=== PATIENT | male | born 1945 | race Caucasian/White ===

== ENCOUNTER → 2016-07-07 | Outpatient (CLI) | payer BC ==
[~2016-07-07] MED LIST: ACET-1256 PO; ASPI325T45 PO; LISI1TAB3 PO; SIMV10TA2 PO
== END | disposition home or self-care (01) ==
LOC: C.CPL 15:57
DX: M75.121 Complete rotator cuff tear or rupture of right shoulder, not specified as traumatic (principal)

== ENCOUNTER → 2016-12-16 | Outpatient (CLI) | payer BC ==
[2016-12-16 10:37] LABS: CALCIUM 8.8 mg/dl (8.5-10.1)
[2016-12-16 10:40] LABS: ALT/SGPT 43 U/L (12-78); BLOOD UREA NITROGEN 17 mg/dl (7-18); BUN/CREATININE RATIO 13.8 (10-20); CARBON DIOXIDE 25 mmol/L (21-32); CHLORIDE 107 mmol/L (98-107); CHOLESTEROL 158 mg/dl (0-200); GLUCOSE 113 mg/dl (70-99); POTASSIUM 4.2 mmol/L (3.5-5.1); SODIUM 140 mmol/L (136-145); TRIGLYCERIDES 162 mg/dl (0-150); VERY LOW DENSITY LIPOPROT CALC 32 mg/dl
[2016-12-16 10:44] LABS: ALB/GLOB RATIO 1.2 (0.9-2); ALKALINE PHOSPHATASE 80 U/L (45-117); AST/SGOT 32 U/L (15-37); CHOLESTEROL/HDL RATIO 4.5; HDL CHOLESTEROL 35 mg/dl; LDL CHOLESTEROL CALCULATED 91 mg/dl; PROSTATE SPECIFIC ANTIGEN 0.953 ng/ml (0.000-4.000)
[2016-12-16 10:46] LABS: ESTIMATED AVERAGE GLUCOSE 123 mg/dl; HA1C FLAG Normal (Normal)
--- NOTE | 2016-12-22 07:25 | CODING QUERY MEDICAL NECESSITY ---
SUPPORTING DIAGNOSIS NEEDED Dr. Villalobos, A supporting diagnosis is required for the test/procedure performed on this patient in order for us to be reimbursed by the patient's insurance. Please provide a supporting diagnosis for the following test/procedure listed below next to the test name along with your signature. *If there is no additional diagnosis for this patient that would support the following test/procedure please document that below next to the test/procedure. Test(s)/Procedure(s) that require a supporting diagnosis: * 52676 PSA DIAGNOSIS: * [id number] GLYCATED HEMOGLOBIN DIAGNOSIS: DATE OF SERVICE: 12/16/16 Provider Signature: Date: Thank you Scout Rivera Health Information Management Once completed, please kindly fax back to [phone] For questions please call [phone]
== END | disposition home or self-care (01) ==
LOC: C.LABBC 07:16
PROVIDERS: ATTEND Internal Medicine
DX: G47.33 Obstructive sleep apnea (adult) (pediatric) (principal); R73.01 Impaired fasting glucose; Z12.5 Encounter for screening for malignant neoplasm of prostate

== ENCOUNTER 2022-07-19 09:57 | Observation (INO) ==
--- NOTE | 2022-07-07 16:14 | PAT Medication Instructions ---
Medication Instructions Date of Service July 07, 2022 Home Medications Medication Instructions Recorded Auto Titrating CPAP #1 ea 02/26/21 lisinopril 30 mg tablet 30 mg PO QAM #90 tabs 06/14/22 diphenhydramine HCl 25 mg capsule (Benadryl) 25 mg PO HS PRN Insomnia acetaminophen 500 mg tablet (Acetaminophen Extra Strength) 1,000 mg PO Q8H PRN Pain aspirin 325 mg tablet 325 mg PO TID lactobacillus combination no.8 3 billion cell capsule (Adult Probiotic) 3,000 mmu cells PO QAM loratadine 10 mg tablet 10 mg PO DAILY PRN Allergy Symptoms turmeric 400 mg capsule 750 mg PO BID calcium carbonate 200 mg calcium (500 mg) chewable tablet (Antacid (calcium carbonate)) 200 mg PO HS PRN Acid Reflux amoxicillin 500 mg capsule 2,000 mg PO UD PRN prior to dental procedures doxycycline hyclate 100 mg capsule 200 mg PO UD PRN tick bites lisinopril 30 mg tablet 30 mg PO QAM simvastatin 10 mg tablet 10 mg PO HS Continue as directed amoxicillin 500 mg capsule 2,000 mg PO UD PRN prior to dental procedures (if needed) doxycycline hyclate 100 mg capsule 200 mg PO UD PRN tick bites (if needed) ASK your prescriber and surgeon aspirin 325 mg tablet 325 mg PO TID STOP taking 2 weeks before surgery turmeric 400 mg capsule 750 mg PO BID DO NOT take the morning of surgery lactobacillus combination no.8 3 billion cell capsule (Adult Probiotic) 3,000 mmu cells PO QAM loratadine 10 mg tablet 10 mg PO DAILY PRN Allergy Symptoms lisinopril 30 mg tablet 30 mg PO QAM Take morning of surgery With a small sip of water, OTHERWISE NOTHING TO EAT OR DRINK AFTER MIDNIGHT: acetaminophen 500 mg tablet (Acetaminophen Extra Strength) 1,000 mg PO Q8H PRN Pain (if needed) Take evening before surgery diphenhydramine HCl 25 mg capsule (Benadryl) 25 mg PO HS PRN Insomnia (if needed) acetaminophen 500 mg tablet (Acetaminophen Extra Strength) 1,000 mg PO Q8H PRN Pain (if needed) loratadine 10 mg tablet 10 mg PO DAILY PRN Allergy Symptoms (if needed) calcium carbonate 200 mg calcium (500 mg) chewable tablet (Antacid (calcium carbonate)) 200 mg PO HS PRN Acid Reflux (if needed) simvastatin 10 mg tablet 10 mg PO HS Other Notes If you have any questions please call us at [phone] or [phone] or [phone] or [phone]
--- NOTE | 2022-07-09 08:20 | Anesthesiology Consultation ---
Date of Service July 09, 2022 Assessment & Plan (1) Encounter for pre-operative examination: - COVID screening: Per assessment on 07/09: No known COVID-19 positive contacts or current COVID-19 related symptoms. Travel screen negative. Patient vaccinated. At surgeon discretion if preop Covid testing being done. - Check BSG AM DOS - Right TKA (04/20/18): SAB at L4-5 (x1 attempt) + PNB at [facility]. No issues noted per post-op anesthesia progress note. - Outpatient joint assessment: Pt currently scheduled for inpatient pathway. If surgeon requests review for outpatient joint pathway, patient is not recommended candidate for outpatient joint program from anesthesia standpoint. - Preop CXR: Per preop CXR, "Possible 12 mm nodule within the right midlung zone. Follow-up noncontrast chest CT recommended for further evaluation." At PCP discretion if CT needs to be done prior to surgery or not. Pt will be seeing [facility] for preop evaluation 07/13. Workload message sent to PCP regarding CXR findings. Awaiting PCP CXR response and preop evaluation (RITA, appt 07/13). Chart Review Chart Review: Patient seen in Pre Admission Testing History Surgery Operation Date: 07/19/22 09:55 Proposed Procedures p Left Total Knee Arthroplasty - Babak Ma MD Height/Weight Height: 5 ft 7 in Weight: 104.9 kg Allergies Allergy/AdvReac Type Severity Reaction Status Date / Time celecoxib Allergy Severe RED FACE, Verified 07/09/22 08:18 TONGUE SWELLING betamethasone Allergy Mild RASH Verified 07/07/22 10:29 clotrimazole Allergy Mild RASH Verified 07/07/22 10:29 corn AdvReac Intermediate STOMACH Verified 07/07/22 10:29 CRAMPING Medications Home Medications Medication Instructions Recorded Confirmed Last Taken diphenhydramine HCl 25 mg capsule 25 mg PO HS PRN Insomnia 04/05/18 07/07/22 04/18/18 22:00 (Benadryl) acetaminophen 500 mg tablet 1,000 mg PO Q8H PRN Pain 02/19/19 07/07/22 11/19/21 (Acetaminophen Extra Strength) aspirin 325 mg tablet 325 mg PO TID 02/27/19 07/07/22 11/19/21 lactobacillus combination no.8 3 3,000 mmu cells PO QAM 02/19/20 07/07/22 11/19/21 billion cell capsule (Adult Probiotic) loratadine 10 mg tablet 10 mg PO DAILY PRN Allergy Symptoms 02/19/20 07/07/22 11/19/21 turmeric 400 mg capsule 750 mg PO BID 02/19/20 07/07/22 11/19/21 calcium carbonate 200 mg calcium 200 mg PO HS PRN Acid Reflux 08/27/20 07/07/22 11/24/21 (500 mg) chewable tablet (Antacid (calcium carbonate)) Auto Titrating CPAP #1 ea 02/26/21 03/01/22 Unknown amoxicillin 500 mg capsule 2,000 mg PO UD PRN prior to dental 11/23/21 07/07/22 Unknown procedures doxycycline hyclate 100 mg capsule 200 mg PO UD PRN tick bites 11/23/21 07/07/22 Unknown lisinopril 30 mg tablet 30 mg PO QAM #90 tabs 06/14/22 07/07/22 Unknown simvastatin 10 mg tablet 10 mg PO HS 07/07/22 07/07/22 Unknown Past Medical History Medical History (Updated 07/09/22 @ 08:39 by Ann Marie Mederos) Diverticulitis hx (most recent flare 05/2022) Diverticulosis Dyslipidemia GERD (gastroesophageal reflux disease) Controlled Hypertension Internal hemorrhoids Low HDL (under 40) Obesity Obstructive sleep apnea CPAP (generally compliant but recently not using as he needs to clean device- states he will clean and restart NICHOLAS) Osteoarthritis of knee Prediabetes no meds Sensorineural hearing loss of both ears B/L hearing aids Exercise / Class Metabolic Activity II 4-5 Yardwork/Stairs/Walk up hill Past Family History Family History Brother Esophageal cancer Father Colorectal cancer Other Hypertension No family history of adverse response to anesthesia Denies family history of Ovarian cancer Prostate cancer Diabetes Myocardial infarction Breast cancer Lung cancer Stroke Past Surgical History Surgical History (Updated 07/08/22 @ 15:05 by Ann Marie Mederos) History of colonoscopy History of esophagogastroduodenoscopy (EGD) History of total hip arthroplasty Right CALEB (07/11/14): SAB at [facility] History of total shoulder replacement Right Hx of vasectomy Status post right knee replacement Right TKA (04/20/18): SAB at L4-5 (x1 attempt) + PNB at [facility]. No issues noted per post-op anesthesia progress note. Past Anesthesia History No Hx of Anesthesia Complications and No Family Hx of Anesthesia Complications History of PONV No Hx of PONV and No Hx of Motion Sickness Social History Smoking Status: Former smoker Do You Dip or Chew Tobacco: No Smoking End Date: Quit 35+ years ago Hx Alcohol Use: No (No ETOH x years) Hx Substance Use: No substance use type: does not use Review of Systems Patient denies chest pain, shortness of breath, dyspnea on exertion, fever, chills, cough, wheezing, palpitations. Physical Exam Vital Signs VITALS BP 154/93 P 69 TEMP 98.3 SP02 96%RA RESP 18 PHYSICAL Full cervical extension range of motion. Full TMJ range of motion. TMD 4 finger breaths Mallampati Score 2 Dentition: intact, + implants/crowns Lungs: clear throughout to auscultation Cardiac: regular rate and rhythm, no murmurs noted Spine: normal Carotid arteries: negative bruit Extremities: no edema Lab Results Anesthesia Preop Results Results Anesthesia Widget: WBC 7.86 K/ul (4.8-10.8) 07/09/22 Hgb 15.8 g/dl (14.0-18.0) 07/09/22 Hct 45.3 % (40.1-51.0) 07/09/22 Plt 268 K/uL (130-400) 07/09/22 Na 137 mmol/L (136-145) 07/09/22 K 4.4 mmol/L (3.5-5.1) 07/09/22 Cl 105 mmol/L (98-107) 07/09/22 CO2 26 mmol/L (21-32) 07/09/22 BUN 20 mg/dl (6-23) 07/09/22 Creat 1.09 mg/dl (0.6-1.4) 07/09/22 Glucose Level 106 mg/dl (70-99(Fasting)) H 07/09/22 PT 11.1 Seconds (9.0-12.0) 07/09/22 PTT 28.2 Seconds (21.0-31.0) 07/09/22 INR 1.0 (0.9-1.1) 07/09/22 HA1c 6.1 % (4.5-5.6) H 07/09/22 Urine Color Yellow 07/09/22 Urine Appearance Clear (Clear) 07/09/22 Urine pH 5.5 (4.5-7.5) 07/09/22 Urine Specific [place] 1.007 (1.000-1.030) 07/09/22 Urine Protein Negative (Negative) 07/09/22 Urine Glucose (UA) Negative (Negative) 07/09/22 Urine Ketones Negative (Negative) 07/09/22 Urine Blood Negative (Negative) 07/09/22 Urine Nitrite Negative (Negative) 07/09/22 Urine Bilirubin Negative (Negative) 07/09/22 Urine Urobilinogen Negative (Negative) 07/09/22 Urine Leukocyte Esterase Negative (Negative) 07/09/22 Blood Type AB Positive 07/09/22 Antibody Screen NEGATIVE 07/09/22 Testing Electrocardiogram Date: 07/09/22 Normal sinus rhythm at 66 bpm. Chest X-Ray Date: 07/09/22 FINDINGS: Possible 12 mm nodule within the right midlung zone. Otherwise, lungs are clear. No pleural fusions. No pneumothorax. Tortuous thoracic aorta. The heart is normal in size. Slight elevation of the right hemidiaphragm, unchanged. IMPRESSION: Possible 12 mm nodule within the right midlung zone. Follow-up noncontrast chest CT recommended for further evaluation. This report was called/faxed to the referring physician following dictation. COVID-19 Risk Screen Screening Information COVID-19 Screen Date: 07/09/22 Exposure 21 Days Family/Household +COVID Last 21 Days: No Exposure 10 Days Any COVID Exposure Last 10 Days: No Symptoms Last 10 Days Experienced COVID Sx Last 10 Days: No + COVID 0-90 Days COVID + in Last 0-90 Days: No
--- NOTE | 2022-07-18 10:38 | History & Physical Report ---
Date of Service July 18, 2022 Assessment & Plan (1) Primary osteoarthritis of left knee: Plan: Treatment options discussed with the patient. He has failed conservative measures and would like to proceed with surgical invention. Risks, benefits and alternatives to surgery including but not limited to infection, DVT, pain, stiffness, need for revision surgery, damage to blood vessels, damage to nerves, PE, , were discussed with the patient and they wish to proceed. Plan left total knee arthroplasty at [facility] on July [address] Ma. We will plan on outpatient physical therapy versus home health PT postop. We will plan on aspirin 81 mg twice daily for 1 month postop. All questions answered. Patient will follow up postop. History of Present Illness Chief Complaint: Left knee pain Primary Care Provider: Lake Villalobos MD 76-year-old male with past medical history significant for hypertension, sleep apnea, diverticulitis who presents with ongoing left knee pain. Patient has failed conservative measures. Pain is interfering with his daily activities. He would like to proceed with surgical invention. Patient denies headaches, sweats, fevers, chills, double vision, blurred vision, cough, sore throat, dysphagia, chest pain, sob, wheezing, n/v/d/c, numbness, tingling, fatigue, urinary symptoms, mood disorders. ROS positive for left knee pain and stiffness. Allergies Allergy/AdvReac Type Severity Reaction Status Date / Time celecoxib Allergy Severe RED FACE, Verified 07/13/22 09:56 TONGUE SWELLING betamethasone Allergy Mild RASH Verified 07/13/22 09:56 clotrimazole Allergy Mild RASH Verified 07/13/22 09:56 corn AdvReac Intermediate STOMACH Verified 07/13/22 09:56 CRAMPING Home Medications Medication Instructions Recorded Confirmed Type diphenhydramine HCl 25 mg capsule 25 mg PO HS PRN Insomnia 04/05/18 07/13/22 History (Benadryl) acetaminophen 500 mg tablet 1,000 mg PO Q8H PRN Pain 02/19/19 07/13/22 History (Acetaminophen Extra Strength) aspirin 325 mg tablet 325 mg PO TID 02/27/19 07/13/22 History lactobacillus combination no.8 3 3,000 mmu cells PO QAM 02/19/20 07/13/22 H istory billion cell capsule (Adult Probiotic) loratadine 10 mg tablet 10 mg PO DAILY PRN Allergy Symptoms 02/19/20 07/13/22 History turmeric 400 mg capsule 750 mg PO BID 02/19/20 07/13/22 History calcium carbonate 200 mg calcium 200 mg PO HS PRN Acid Reflux 08/27/20 07/13/22 History (500 mg) chewable tablet (Antacid (calcium carbonate)) Auto Titrating CPAP #1 ea 02/26/21 07/13/22 Rx amoxicillin 500 mg capsule 2,000 mg PO UD PRN prior to dental 11/23/21 07/13/22 History procedures lisinopril 30 mg tablet 30 mg PO QAM #90 tabs 06/14/22 07/13/22 Rx simvastatin 20 mg tablet 20 mg PO HS #90 tabs 07/13/22 07/13/22 Rx Past Med/Surg History Medical History Diverticulitis Diverticulosis Dyslipidemia GERD (gastroesophageal reflux disease) Hypertension Internal hemorrhoids Low HDL (under 40) Obesity Obstructive sleep apnea Osteoarthritis of knee Prediabetes Sensorineural hearing loss of both ears Surgical History History of colonoscopy History of esophagogastroduodenoscopy (EGD) History of total hip arthroplasty History of total shoulder replacement Hx of vasectomy Status post right knee replacement Family History Brother Esophageal cancer Father Colorectal cancer Other Hypertension No family history of adverse response to anesthesia Denies family history of Ovarian cancer Prostate cancer Diabetes Myocardial infarction Breast cancer Lung cancer Stroke Social History Smoking Status: Former smoker Second Hand Exposure: Yes (35 years ago); Hx Alcohol Use: No (No ETOH x years) Hx Substance Use: No Preferred Language: Tamazight Communication Ability: Effective Visual Impairment: Limited Hearing Ability: Use of Hearing Aid Pedigree Tracer Required: No Beliefs That Will Affect Care: None marital status: Current Living Situation: Spouse current occupational status: retired How many Children do You have: 1 Feels Safe at Home: Yes Childhood Exposure to Second-Hand Smoke: No caffeine: Yes Dental Care, Regularly: Yes Physical Activity Frequency: Daily Seatbelt Use: always Sunscreen Use: Yes Assistive Devices: CPAP and Hearing Aid - Bilateral Review of Systems All systems reviewed & are unremarkable except as noted in HPI & below Physical Exam Constitutional: well developed and well nourished; no acute distress Eyes: PERRL, conjunctivae normal, anicteric sclerae ENMT: external ear and nose normal, oropharynx normal Neck: trachea midline, no thyromegaly Respiratory: normal respiratory effort, lungs clear to auscultation Cardiovascular: RRR, no murmur, no edema Musculoskeletal: Left knee: Mild effusion. Tenderness medial joint line painful range of motion. Range of motion 0 to 135 degrees. Stable to valgus and varus stress test. Skin: no rashes, warm and dry Neurologic: patellar DTR's 2+ bilat, sensation intact Psychiatric: A+Ox3, euthymic affect Results & Data ([facility]) Diagnostic Findings Demonstrate significant joint space narrowing medial compartment, [id number]. There is subluxation of the femur on tibia. There is tricompartment degenerative changes.
[~2022-07-19 09:57] MED LIST changes: -ACET-1256 PO; +ACETAMINOPHEN 500 MG TAB PO SCH; -ASPI325T45 PO; +BUPIVACAINE 0.5 % 5 MG/1 ML PF 10ML VIAL ONE; +EPINEPHrine INJ 1 MG/ML AMP ONE; +FAMOTIDINE 20 MG TAB PO SCH; +GABAPENTIN 300 MG CAP PO SCH; -LISI1TAB3 PO; +LR 500ML BOLUS, THEN 15ML/HR IV SCH; +METOCLOPRAMIDE HCL 10 MG TABLET PO SCH; +ROPIVACAINE 0.5% 5 MG/ML 30 ML VIAL ONE; +ROPIVACAINE 0.5% HCL/PF 150 MG, BUPIVACAINE 0.75% MPF 20 ML, EPINEPHrine 30MG/30ML (OR ... INSTIL SCH; -SIMV10TA2 PO; +TRANEXAMIC ACID 1,000 MG **IV Intra-op IV SCH; +TRANEXAMIC ACID 1,000 MG **IV Pre-op IV SCH; +ceFAZolin 2000MG 2,000 MG/15 ML SYR IV SCH; +dexAMETHasone 4 MG TAB PO SCH
--- NOTE | 2022-07-19 10:12 | History & Physical Bridge Note ---
Date of Service July 19, 2022 History & Physical Bridge Note I have examined the patient, reviewed the History & Physical and in the interval since the performance of the History & Physical I have noted the following changes of clinical significance: no changes noted
[2022-07-19] MEDS ORDERED: ORTHO JOINT ANESTHETIC ONE (10:13)
[2022-07-19] MEDS ORDERED: ONDANSETRON INJ 2 MG/ML 2 ML VIAL IV PRN ×2 (10:18→16:33)
[2022-07-19] MEDS ORDERED: PHENYLEPHRINE 100MCG/ML 5ML SYR IV PRN (10:18)
[2022-07-19] MEDS ORDERED: ATROPINE SULFATE 0.1 MG/ML 10ML SYR IV PRN (10:18)
[2022-07-19] MEDS ORDERED: HYDROmorphone INJ 1 MG/ML SYRINGE IV PRN (10:18)
[2022-07-19] MEDS ORDERED: ePHEDrine sulfate 50 MG/ML AMP IV PRN (10:18)
[2022-07-19] MEDS ORDERED: fentaNYL citrate 100 MCG/2 ML VIAL IV PRN (10:18)
[2022-07-19] MEDS ORDERED: LABETALOL HCL IV 5 MG/ML 20ML IV PRN (10:18)
[2022-07-19] MEDS ORDERED: MEPERIDINE HCL 25 MG/ML CARP/VIAL IV PRN (10:18)
[2022-07-19] MEDS ORDERED: MIDAZOLAM HCL 1 MG/ML 2ML VIAL ONE ×2 (11:40→14:14)
[2022-07-19] MEDS ORDERED: PROPOFOL IV EMULSION 10 MG/ML 20 ML VIAL IV ONE ×3 (11:43→14:51)
[2022-07-19] MEDS ORDERED: PHENYLEPHRINE 100MCG/ML 5ML SYR ONE (12:51)
[2022-07-19] MEDS ORDERED: fentaNYL citrate 100 MCG/2 ML VIAL ONE (14:13)
--- NOTE | 2022-07-19 14:51 | Operative Report ---
Post Operative Report Pre & Post Diagnosis Operation Date: 07/19/22 11:55 Pre-Op Diagnosis: Degenerative Joint Disease, Left Knee. Post-Op Diagnosis: Degenerative Joint Disease, Left Knee. I identified the patient and participated in the time-out.: Yes Procedure Operation Date: 07/19/22 11:55 Actual Procedures p Left Total Knee Arthroplasty, Cemented.(Left), lateral release, abril and Acticoat superficial wound VAC- Babak Ma MD Surgeon Babak Ma MD Kiln Firer Luisito RAMIREZ Estimated Blood Loss 5 Findings Consistent with Post-Op Diagnosis Specimens Bone cuts Drains 2 Hemovac Complications none Disposition Disposition: Recovery Room Indications 76-year male with progressive osteoarthritis in his left knee failed conservative management. He had a history of prior right knee replacement in the past. Patient now has [id number] medial compartment and some moderate patellofemoral osteoarthritis. Patient has a varus knee deformity. Patient has chronic synovitis and moderately large effusion. Description of Procedure Patient taken to the operating room the size under spinal MAC regional block anesthesia. Patient was placed supine on the operating table. A pneumatic tourniquet was placed about the left upper thigh. The left lower extremity was prepped and draped in sterile fashion. Knee exam demonstrated good range of mo tion 0 through 130 degrees with moderate large effusion. The leg was elevated exsanguinated with an Esmarch bandage and pneumatic tourniquet was raised to 325 millimeters of mercury. Skin incised sharply in longitudinal fashion. Subcutaneous flaps elevated. Incision was made through the medial retinaculum extending up in the mid third of the quadriceps tendon and down to the medial tibial tubercle. Intra-articular findings demonstrated chronic synovitis [id number] medial compartment grade 3-4 trochlear disease and grade 3 articular thinning of the medial facet of the patella. The FilmTrackn total knee arthroplasty system was used. To expose the knee the infrapatellar fat pad was resected. The meniscal remnants and cruciate ligaments were resected. The anterior fat pad over the femur in the area of the anterior flange of the femoral component was resected. Lateral synovial bands release. The femur was exposed. An intramedullary drill hole was made into the canal. A guide denae was placed. Distal femoral cutting guide was adjusted to resect a 5 degree valgus cut with 8 millimeters distal femur resected. The knee was extended and a subperiosteal peel lateral release was performed around the patella. Patella width was measured and width was reproduced using a freehand cut technique and a 33 symmetrical patella component. The 3 drill holes were made and the excess lateral facet was beveled off to prevent any impingement. Attention was taken back to the femur which was exposed with retractors and the femoral sizing guide was pinned in position. The drill holes were placed in 3 of external rotation to match epicondylar axis. Femur sized for a 6 component. The 4-in-1 cutting block was placed and then the anterior posterior and chamfer cuts are made. The tibia was then subluxed. The external tibial cutting guide was just to make a perpendicular cut to the long axis of the tibia below the most deficient bone loss side. A lamina head of biology was used and the flexion extension gaps were balanced. All posterior osteophytes removed. All meniscal remnants were resected. The tibia exposed and the trial tibial component size 5 was externally rotated in line with the tibial tubercle and pinned in position. The punch for stem was used. The notch cutting device was centered appropriately and the femoral notch cut was made. The femoral trial was inserted. Trial tibial inserts were placed and size 11 gave balanced ligaments through flexion and extension. Patella tracking was assessed. The patella tracked with some lateral tilt so I did a lateral release leaving the synovium intact and the patella tracked centrally after that. The trial components were then removed and the orthomix anesthetic cocktail was injected per protocol. The knee was then copiously irrigated with pulsatile lavage saline solution. Final components were then cemented with Refobacin cement. Final components were 6 left triathlon posterior stabilized femoral component, 5 universal baseplate tibial component, 5 tibial polyethylene insert posterior stabilized, 33 symmetrical polyethylene patella. After the cement cured the Betadine soak was used for 3 minutes. Further pulsatile lavage irrigation was then performed and 2 Hemovac drains were brought out laterally. The quadriceps tendon and medial retinaculum were closed with figure of 8 #1 Vicryl sutures. The knee was taken through full range of motion and the repair was secure. Knee range of motion was 0 through 135 degrees. The subcutaneous tissues were closed with 2-0 Vicryl sutures. Skin was closed with peggy. Abril and Acticoat superficial wound VAC was applied. The patient tolerated the procedure well. Luisito RAMIREZ was my physician records assistant who participated as floor covering printer assistant and was involved in all aspects of the procedure including patient positioning prepping and draping,leg positioning ,soft tissue retraction and instrument management and participated in the closing applied a superficial wound VAC abril and Acticoat and will participate in postoperative care of the patient. The patient tolerated the procedure well. I attest to the content of the Intraoperative Record and any orders documented therein. Any exceptions are noted below.
--- NOTE | 2022-07-19 16:09 | XRay Report ---
LEFT KNEE 2 VIEWS History: Left total knee arthroplasty. Degenerative arthritis. Postop. FINDINGS: The patient is status post a left total knee arthroplasty. The hardware is intact. No fract ure or dislocation. Skin peggy and surgical drains are in place. IMPRESSION: Left total knee arthroplasty. No evidence for hardware complication. ACT 112: Negative or not required by law. Electronically signed by: Camilo Leggett M.D. 07/19/2022 4:08 PM
[2022-07-19] MEDS ORDERED: CALCIUM CARBONATE 500 MG CHEWABLE TAB PO PRN (16:33)
[2022-07-19] MEDS ORDERED: METOCLOPRAMIDE HCL INJ 5 MG/ML 2 ML VIAL IV PRN (16:33)
[2022-07-19] MEDS ORDERED: SODIUM CHLORIDE 0.9% 1000ML 1,000 ML IV SCH (16:33)
[2022-07-19] MEDS ORDERED: TAMSULOSIN HCL 0.4 MG CAP PO PRN (16:33)
[2022-07-19] MEDS ORDERED: MAGNESIUM HYDROXIDE SUSP 30 ML UDC PO PRN (16:33)
[2022-07-19] MEDS ORDERED: diphenhydrAMINE Capsule 25 MG CAP PO PRN (16:33)
[2022-07-19] MEDS ORDERED: bisacodyL 10 MG SUPP PR PRN (16:33)
[2022-07-19] MEDS ORDERED: HYDROmorphone INJ 0.5 MG/0.5 ML SYR IV PRN (16:33)
[2022-07-19] MEDS ORDERED: NALOXONE HCL 0.4 MG/1 ML VIAL/CARP IV PRN (16:33)
[2022-07-19] MEDS ORDERED: LORATADINE 10 MG TAB PO PRN (16:33)
--- NOTE | 2022-07-19 16:47 | Anesthesiology Progress Note ---
Date of Service July 19, 2022 Anesthesia Post Procedure Vital Signs Vital Signs: Temp Pulse Pulse Resp BP Pulse Ox O2 Del Method 07/19/22 16:33 98.2 F 71 71 16 124/71 91 Room Air 07/19/22 16:00 97.3 F L 70 17 113/77 94 Room Air 07/19/22 15:50 77 18 109/77 94 Room Air 07/19/22 15:40 82 17 110/66 94 Room Air 07/19/22 15:30 97.2 F L 81 17 122/66 94 Room Air 07/19/22 10:30 97.7 F 77 20 139/89 94 Room Air Pain Intensity Left Knee: Pain Intensity: 6 Posterior Neck: Pain Intensity: 2 Transfer of Care Handoff Completed per policy Notes Mental Status: alert / awake / arousable and participated in evaluation Patient Amnestic to Procedure: Yes Nausea / Vomiting: adequately controlled Pain: adequately controlled Airway Patency, RR, SpO2: stable & adequate BP & HR: stable & adequate Hydration State: stable & adequate Neuraxial Anesthesia: was administered and sensory block is resolving Anesthetic Complications: no major complications apparent and Pt Satisfied with anesthetic care
--- NOTE | 2022-07-19 17:21 | Hospitalist Consultation ---
Date of Consultation July 19, 2022 Assessment & Plan (1) Primary osteoarthritis of left knee: - s/p L TKA. POD #0. EBL 5 cc. 2 Hemovac drains placed. - Pain/ABX/IVF/diet/drain management/transfusion needs/activity per primary team - Rescue Narcan ordered for over sedation PRN - VTE prophylaxis per primary service- SCDs in place - CBC and BMP in AM. - Baseline renal function: Cr 1.09 on 6 - Baseline Hgb: 15.8 on 1 (2) Hypertension: - Ideally would hold lisinopril until POD #2 due to risk of hypotension related to anesthesia, however if hypertensive with SBP > 160 on POD #1, could restart then pending renal function is at baseline on AM labs. (3) Dyslipidemia: - Continue simvastatin. (4) Prediabetes: Last A1c 6.1%. Not on any meds currently. (5) Obstructive sleep apnea: - CPAP at night, brought his in from home. Plan - Observation on med/surg per primary team. - SCDs, aspirin BID for VTE ppx as ordered by primary team. - Full Code. Supervising Physician Co-Signing Physician Notes I personally saw and examined the patient. I verified all [place] points and agree with Luisana Herbert PA-C with the following exceptions and/or additions: 76-year-old male POD#0 left total knee arthroplasty. No acute complaints or questions. O/E A&Ox3, HS1+2, RRR, no murmurs, Chest CTAB, Abdo SNT, Left 1st MTPJ 1/5 plantar/dorsiflex A/P VTE/antibiotics/IV fluid/pain management per primary orthopedic team Agree with holding lisinopril due to postop day 2 unless systolic blood pressure greater than 160 as above Otherwise no significant acute or chronic medical needs identified. Thank you for the consult. [facility] [place] to review labs and chart review in a.m. We will otherwise sign off at this time. Please call [facility] hospitalist on-call for any questions or concerns. History of Present Illness Reason for Consultation: post op medication management Requesting Physician: Babak Ma MD Attending Physician: Babak Ma MD History of Present Illness Paulo Steen is a 76 y/o male with a PMH of hypertension, dyslipidemia, predi abetes, MADI, and CAD who was admitted today, 07/19 for a left TKA with Dr. Ma. Hospitalist group was consulted for post-operative medication management. Today, he is POD#0 and feels well. Denies fever/chills, weakness, chest pain, palpitations, shortness of breath, cough, orthopnea, abdominal pain, nausea, vomiting. He is regaining sensation in his left leg, without any numbness or tingling. He is resting comfortably in bed, finishing dinner at thee time of my visit. Allergies Allergy/AdvReac Type Severity Reaction Status Date / Time celecoxib Allergy Severe RED FACE, Verified 07/19/22 10:24 TONGUE SWELLING betamethasone Allergy Mild RASH Verified 07/19/22 10:24 clotrimazole Allergy Mild RASH Verified 07/19/22 10:24 corn AdvReac Intermediate STOMACH Verified 07/19/22 10:24 CRAMPING Home Medications Medication Instructions Recorded Confirmed Type diphenhydramine HCl 25 mg capsule 25 mg PO HS PRN Insomnia 04/05/18 07/19/22 History (Benadryl) acetaminophen 500 mg tablet 1,000 mg PO Q8H PRN Pain 02/19/19 07/19/22 History (Acetaminophen Extra Strength) aspirin 325 mg tablet 325 mg PO TID 02/27/19 07/19/22 History lactobacillus combination no.8 3 3,000 mmu cells PO QAM 02/19/20 07/19/22 History billion cell capsule (Adult Probiotic) loratadine 10 mg tablet (Claritin) 10 mg PO DAILY PRN Allergy Symptoms 02/19/20 07/19/22 History turmeric 400 mg capsule 750 mg PO BID 02/19/20 07/19/22 History calcium carbonate 200 mg calcium 200 mg PO HS PRN Acid Reflux 08/27/20 07/19/22 History (500 mg) chewable tablet (Antacid (calcium carbonate)) Auto Titrating CPAP #1 ea 02/26/21 07/13/22 Rx amoxicillin 500 mg capsule 2,000 mg PO UD PRN prior to dental 11/23/21 07/19/22 History procedures lisinopril 30 mg tablet 30 mg PO QAM #90 tabs 06/14/22 07/19/22 Rx simvastatin 20 mg tablet 20 mg PO HS 07/19/22 07/19/22 History Patient History Medical History Coronary artery calcification Diverticulitis hx (most recent flare 05/2022) Dyslipidemia GERD (gastroesophageal reflux disease) Controlled Hypertension Internal hemorrhoids Obesity Obstructive sleep apnea CPAP (generally compliant but recently not using as he needs to clean device- states he will clean and restart NICHOLAS) Osteoarthritis of knee Prediabetes no meds Sensorineural hearing loss of both ears B/L hearing aids Surgical History History of colonoscopy History of esophagogastroduodenoscopy (EGD) History of total hip arthroplasty Right CALEB (07/11/14): SAB at [facility] History of total shoulder replacement Right Hx of vasectomy Status post right knee replacement Right TKA (04/20/18): SAB at L4-5 (x1 attempt) + PNB at [facility]. No issues noted per post-op anesthesia progress note. Family History Brother Esophageal cancer Father Colorectal cancer Other Hypertension No family history of adverse response to anesthesia Denies family history of Ovarian cancer Prostate cancer Diabetes Myocardial infarction Breast cancer Lung cancer Stroke Social History Smoking Status: Former smoker Smoking End Date: Quit 35+ years ago; Second Hand Exposure: No; Do You Dip or Chew Tobacco: No; Tobacco Cessation Education Requested by Patient: No Hx Alcohol Use: No Hx Substance Use: No Preferred Language: Bahraini Communication Ability: Effective Visual Impairment: Limited Hearing Ability: Use of Hearing Aid Pattern Carrier Required: No Beliefs That Will Affect Care: None marital status: Current Living Situation: Spouse current occupational status: retired How many Children do You have: 1 Other Information That Helps Us Care for You: No Feels Safe at Home: Yes Safety Concerns: Feels Safe At This Time Childhood Exposure to Second-Hand Smoke: No caffeine: Yes Dental Care, Regularly: Yes Physical Activity Frequency: Daily Seatbelt Use: always Sunscreen Use: Yes Assistive Devices: Walker Review of Systems Review of Systems: Constitutional: No fever/chills, weakness, fatigue, myalgias, anorexia, night sweats Eyes: No diplopia, no worsening or blurred vision ENT: normal hearing, no trouble swallowing Respiratory: No cough, sputum, dyspnea at rest or on exertion Cardiovascular: No chest pain, tightness or palpitations Abdomen: No pain, nausea, vomiting, diarrhea or constipation : Denies dysuria, hematuria, increased urgency/frequency, urinary retention Musculoskeletal: No joint pain, calf pain, swelling Neurologic: No weakness, numbness/tingling, or balance problems Psychiatric: No anxiety or depression Skin: No rash or itch Physical Exam Physical Exam: General: awake, alert, no apparent distress Head: Normocephalic, atraumatic ENT: PERRL, EOMI, no pharyngeal exudate, mucous membranes moist Chest: Clear to auscultation, on room air, no adventitious breath sounds Cardiac: Regular rate and rhythm, no murmur, no JVD, normal peripheral pulses, good capillary refill Abdominal: NABS x 4 quadrants, soft, nontender to palpation, no rebound, guarding or tenderness Extremities: Normal inspection, no peripheral edema or erythema, calfs nontender to palpation Psych: Normal mood and affect Neuro: AAO x 3, strength intact bilaterally and rated 5/5, no motor deficits, speech is clear, no peripheral sensory deficits Skin: no rash or erythema Results & Data Results & Data ([facility]) Vital Signs (Past 12 Hours) Vital Signs Temp Pulse Pulse Resp BP Pulse Ox O2 Del Method 07/19/22 17:03 36.8 C 75 18 142/80 H 93 Room Air 07/19/22 16:33 36.8 C 71 71 16 124/71 91 Room Air 07/19/22 16:00 36.3 C L 70 17 113/77 94 Room Air 07/19/22 15:50 77 18 109/77 94 Room Air 07/19/22 15:40 82 17 110/66 94 Room Air 07/19/22 15:30 36.2 C L 81 17 122/66 94 Room Air 07/19/22 10:30 36.5 C 77 20 139/89 94 Room Air Laboratory Results Abnormal lab results 07/19/22 Range/Units 10:42 POC Glucose 100 H (70-99) mg/dl Diagnostic Findings Chest CT 07/12/22 11:00 CT OF THE CHEST WITHOUT IV CONTRAST CLINICAL HISTORY: R91.1 - Solitary pulmonary nodule. COMPARISON STUDY: Chest radiograph July 09, 2022. CT DOSE: 751.37 mGy.cm TECHNIQUE: Axial images of the chest were obtained without IV contrast. Images were reviewed in the axial, sagittal, and coronal planes. IV contrast was not administered for this examination. Automated exposure control was utilized for the study. A dose lowering technique was utilized adhering to the principles of ALARA. FINDINGS: No enlarged axillary, mediastinal or hilar lymph nodes are present. Size of the heart is normal. No pericardial effusion. There is extensive coronary artery calcification. Note is made of a 2 cm slightly irregular soft tissue density within the anterior mediastinum on axial image 129 of 321. There is no pneumothorax or pleural effusion. There is no consolidation to suggest pneumonia. Minimal lingular opacity reflects atelectasis or scarring. The possible right midlung nodule on chest radiograph of July 09, 2022 was artif actual. No fractures or suspicious lesions within the bony thorax are noted. Visualized portions of the upper abdomen are unremarkable. IMPRESSION: 1. No suspicious pulmonary nodules. Possible right midlung nodule on chest radiograph of July 09, 2022 was artifactual. 2. 2 cm soft tissue density within the anterior mediastinum. This is low suspicion but indeterminate. A follow-up chest CT in 6 months to ensure stability is recommended. 3. Extensive coronary artery calcification. ACT 112: Negative or not required by law. Electronically signed by: Darrell López M.D. 07/12/2022 11:30 AM Knee X-Ray 07/19/22 15:37 LEFT KNEE 2 VIEWS History: Left total knee arthroplasty. Degenerative arthritis. Postop. FINDINGS: The patient is status post a left total knee arthroplasty. The hardware is intact. No fracture or dislocation. Skin peggy and surgical drains are in place. IMPRESSION: Left total knee arthroplasty. No evidence for hardware complication. ACT 112: Negative or not required by law. Electronically signed by: Camilo Leggett M.D. 07/19/2022 4:08 PM PG Care Time/CCT Total # of Minutes Spent Total Time Spent with Patient: Total time spent is greater than 50% in coordination of care (as documented) at patient's floor/unit and/or counseling patient: Coding Level of Care Code INP/OBS CONSULT LVL 3, 45 MIN Diagnoses Primary osteoarthritis of left knee M17.12 Hypertension I10 Hypertension type: essential hypertension Dyslipidemia E78.5 Prediabetes R73.03 Obstructive sleep apnea G47.33 (1) Hypertension Hypertension type: essential hypertension Qualified Code(s): I10 - Essential (primary) hypertension
[2022-07-19] MEDS: oxyCODONE HCL IR 5 MG TAB (IMMEDIATE RELEASE) PO PRN ×2 (19:44→23:43)
[2022-07-19] MEDS: DOCUSATE SODIUM 100 MG CAP PO SCH (20:35)
[2022-07-19] MEDS: ASPIRIN 325 MG ECTAB PO SCH (20:35)
[2022-07-19] MEDS: SENNA 8.6 MG TAB PO SCH (20:35)
[2022-07-19] MEDS: SIMVASTATIN 20 MG TAB PO SCH (20:35)
[2022-07-19] MEDS: ACETAMINOPHEN 500 MG TAB PO SCH (21:21)
[2022-07-19] MEDS: ceFAZolin 2000MG 2,000 MG/15 ML SYR IV SCH (21:21)
[2022-07-20] MEDS: ACETAMINOPHEN 500 MG TAB PO SCH ×3 (05:26→22:20)
[2022-07-20] MEDS: ceFAZolin 2000MG 2,000 MG/15 ML SYR IV SCH (05:26)
[2022-07-20 07:22] LABS: Hematocrit (blood only) 36.5 % (40.1-51.0); Hemoglobin 12.9 g/dl (14.0-18.0); Mean Corpuscular Hemoglobin 30.6 pg (25.0-34.0); Mean Corpuscular Hgb Conc 35.3 g/dL (32.0-36.0); Mean Corpuscular Volume 86.5 fL (80.0-100.0); Mean Platelet Volume 10.3 fL (9.4-12.4); Platelet Count 264 K/uL (130-400); RDW Coefficient of Variation 12.9 % (11.5-14.5); RDW Standard Deviation 40.4 fL (36.4-46.3); Red Blood Count 4.22 M/uL (4.63-6.08); White Blood Count 16.12 K/ul (4.8-10.8)
[2022-07-20 07:47] LABS: BUN Creatinine Ratio 17.3 (10-20); Calcium 8.3 mg/dl (8.5-10.1); Creatinine Clr Calc Pharmacy 70.9 ml/min; Est GFR (African American) 81.6 ml/min; Est GFR (Non-African American) 70.4 ml/min
[2022-07-20] MEDS: MULTIVITAMIN TAB PO SCH (08:26)
[2022-07-20] MEDS: DOCUSATE SODIUM 100 MG CAP PO SCH ×2 (08:26→20:22)
[2022-07-20] MEDS: ASPIRIN 325 MG ECTAB PO SCH ×2 (08:26→20:22)
[2022-07-20] MEDS: oxyCODONE HCL IR 5 MG TAB (IMMEDIATE RELEASE) PO PRN ×4 (08:31→22:21)
[2022-07-20] MEDS ORDERED: lisinopril 10 MG TAB PO SCH (09:00)
--- NOTE | 2022-07-20 09:42 | Orthopedic Progress Note ---
Date of Service July 20, 2022 Assessment & Plan (1) History of total left knee replacement: Plan: POD #1 s/p Left TKA pt/ot dvt proph with ANA/SCD/ASA plan for d/c home with OPPT. will recheck after PT, discussed d/c with hemovac in place to have removed tomorrow in our office, vs staying overnight and doing here in the am Admission and Anticipated Discharge Date Admission Date: July 19, 2022 Subjective POD #1 s/p Left TKA Review of Systems Constitutional: no fever, no chills and no sweats Respiratory: no cough and no dyspnea Cardiovascular: no chest pain and no dyspnea Gastrointestinal: no abdominal pain, no nausea and no vomiting Physical Exam Physical Exam: Vital Signs Temp 37 C 07/20/22 07:49 Pulse 96 H 07/20/22 07:49 Resp 20 07/20/22 07:49 BP 128/84 07/20/22 07:49 Pulse Ox 96 07/20/22 07:49 O2 Del Method 07/20/22 07:49 O2 Flow Rate 2 07/20/22 07:49 Intake & Output 07/19/22 07/20/22 07/20/22 18:59 06:59 18:59 Intake Total 2200 / 3090 890 / 3090 Output Total 15 / 1390 1375 / 1390 Balance 2185 / 1700 -485 / 1700 Weight 102.058 kg Intake: IV 200 / 1090 890 / 1090 Lactated Ringe r's 1,000 ml @ 15 0 / 0 mls/hr IV .Q24 H JULIAN Rx#: [id number] Sodium Chlorid e 0.9% 1000ML 1, 890 / 890 000 ml @ 100 m ls/hr IV .Q10H JULIAN Rx#:[id number] Tranexamic Aci d / 0.7% NaCl 1, 200 / 200 000 mg In 100 ml @ 600 mls/hr IV TODAY@0600 JULIAN Rx#:[id number] IV Perioperative 1999 / 1999 Output: Urine 1100 / 1100 Estimated Blood Loss 5 / 5 Drain Output 275 / 285 Left Knee Hemo vac 275 / 285 Other: # Unmeasured Voi ds 1 Weight Measureme nt Method [facility] Musculoskeletal: Left Leg: NVDI, calf SNT, negative jose sign. DP palpable, able to wiggle toes/ankle movement without difficulty. dressing clean dry and intact. improving ankle dorsiflexion Results & Data ([facility]) Vital Signs (Past 12 Hours) Vital Signs Temp Pulse Resp BP Pulse Ox O2 Del Method O2 Flow Rate 07/20/22 07:40 Room Air 07/20/22 07:49 37 C 96 H 20 128/84 96 Nasal Cannula 2 07/20/22 05:35 36.5 C 62 20 135/72 93 Room Air 07/20/22 00:00 36.9 C 79 20 111/65 95 Nasal Cannula 2 Laboratory Results Laboratory Results WBC 16.12 K/ul (4.8-10.8) H 07/20/22 06:44 RBC 4.22 M/uL (4.63-6.08) L 07/20/22 06:44 Hgb 12.9 g/dl (14.0-18.0) L 07/20/22 06:44 Hct 36.5 % (40.1-51.0) L 07/20/22 06:44 MCV 86.5 fL (80.0-100.0) 07/20/22 06:44 MCH 30.6 pg (25.0-34.0) 07/20/22 06:44 MCHC 35.3 g/dL (32.0-36.0) 07/20/22 06:44 RDW Std Deviation 40.4 fL (36.4-46.3) 07/20/22 06:44 RDW Coeff of Monster 12.9 % (11.5-14.5) 07/20/22 06:44 Plt Count 264 K/uL (130-400) 07/20/22 06:44 MPV 10.3 fL (9.4-12.4) 07/20/22 06:44 Sodium 134 mmol/L (136-145) L 07/20/22 06:44 Potassium 4.0 mmol/L (3.5-5.1) 07/20/22 06:44 Chloride 105 mmol/L (98-107) 07/20/22 06:44 Carbon Dioxide 23 mmol/L (21-32) 07/20/22 06:44 Anion Gap 6 (3-11) 07/20/22 06:44 BUN 18 mg/dl (6-23) 07/20/22 06:44 Creatinine 1.04 mg/dl (0.6-1.4) 07/20/22 06:44 Est Cr Clr Drug Dosing 70.9 ml/min 07/20/22 06:44 Est GFR ( Amer) 81.6 ml/min 07/20/22 06:44 Est GFR (Non-Af Amer) 70.4 ml/min 07/20/22 06:44 BUN/Creatinine Ratio 17.3 (10-20) 07/20/22 06:44 Glucose 122 mg/dl (70-99(Fasting)) H 07/20/22 06:44 POC Glucose 100 mg/dl (70-99) H 07/19/22 10:42 Calcium 8.3 mg/dl (8.5-10.1) L 07/20/22 06:44 SARS-CoV-2, RNA, NAAT NEGATIVE (NEGATIVE) 07/19/[address] 07/12/22 11:00 CT OF THE CHEST WITHOUT IV CONTRAST CLINICAL HISTORY: R91.1 - Solitary pulmonary nodule. COMPARISON STUDY: Chest radiograph July 09, 2022. CT DOSE: 751.37 mGy.cm TECHNIQUE: Axial images of the chest were obtained without IV contrast. Images were reviewed in the axial, sagittal, and coronal planes. IV contrast was not administered for this examination. Automated exposure control was utilized for the study. A dose lowering technique was utilized adhering to the principles of ALARA. FINDINGS: No enlarged axillary, mediastinal or hilar lymph nodes are present. Size of the heart is normal. No pericardial effusion. There is extensive coronary artery calcification. Note is made of a 2 cm slightly irregular soft tissue density within the anterior mediastinum on axial image 129 of 321. There is no pneumothorax or pleural effusion. There is no consolidation to suggest pneumonia. Minimal lingular opacity reflects atelectasis or scarring. The possible right midlung nodule on chest radiograph of July 09, 2022 was artifactual. No fractures or suspicious lesions within the bony thorax are noted. Visualized portions of the upper abdomen are unremarkable. IMPRESSION: 1. No suspicious pulmonary nodules. Possible right midlung nodule on chest radiograph of July 09, 2022 was artifactual. 2. 2 cm soft tissue density within the anterior mediastinum. This is low suspicion but indeterminate. A follow-up chest CT in 6 months to ensure stability is recommended. 3. Extensive coronary artery calcification. ACT 112: Negative or not required by law. Electronically signed by: Darrell López M.D. 07/12/2022 11:30 AM Knee X-Ray 07/19/22 15:37 LEFT KNEE 2 VIEWS History: Left total knee arthroplasty. Degenerative arthritis. Postop. FINDINGS: The patient is status post a left total knee arthroplasty. The hardware is intact. No fracture or dislocation. Skin peggy and surgical drains are in place. IMPRESSION: Left total knee arthroplasty. No evidence for hardware complication. ACT 112: Negative or not required by law. Electronically signed by: Camilo Leggett M.D. 07/19/2022 4:08 PM
[2022-07-20] MEDS: SENNA 8.6 MG TAB PO SCH (20:22)
[2022-07-20] MEDS: SIMVASTATIN 20 MG TAB PO SCH (20:23)
[2022-07-21] MEDS: oxyCODONE HCL IR 5 MG TAB (IMMEDIATE RELEASE) PO PRN ×3 (03:57→13:24)
[2022-07-21] MEDS: ACETAMINOPHEN 500 MG TAB PO SCH ×2 (03:59→13:24)
[2022-07-21] MEDS: DOCUSATE SODIUM 100 MG CAP PO SCH (08:38)
[2022-07-21] MEDS: ASPIRIN 325 MG ECTAB PO SCH (08:38)
[2022-07-21] MEDS: MULTIVITAMIN TAB PO SCH (08:39)
[2022-07-21] MEDS ORDERED: lisinopril 10 MG TAB PO SCH (09:00)
--- NOTE | 2022-07-21 22:46 | Discharge Summary ---
Date of Service July 21, 2022 Admission HPI Per Admitting Provider 76-year-old male with past medical history significant for hypertension, sleep apnea, diverticulitis who presents with ongoing left knee pain. Patient has failed conservative measures. Pain is interfering with his daily activities. He would like to proceed with surgical invention. Patient denies headaches, sweats, fevers, chills, double vision, blurred vision, cough, sore throat, dysphagia, chest pain, sob, wheezing, n/v/d/c, numbness, tingling, fatigue, urinary symptoms, mood disorders. ROS positive for left knee pain and stiffness. Admission Exam Per Admitting Provider Constitutional: well developed and well nourished; no acute distress Eyes: PERRL, conjunctivae normal, anicteric sclerae ENMT: external ear and nose normal, oropharynx normal Neck: trachea midline, no thyromegaly Respiratory: normal respiratory effort, lungs clear to auscultation Cardiovascular: RRR, no murmur, no edema Musculoskeletal: Left knee: Mild effusion. Tenderness medial joint line painful range of motion. Range of motion 0 to 135 degrees. Stable to valgus and varus stress test. Skin: no rashes, warm and dry Neurologic: patellar DTR's 2+ bilat, sensation intact Psychiatric: A+Ox3, euthymic affect Principal Diagnosis left knee osteoarthritis Discharge Exam Left Leg: NVDI, calf SNT, negative jose sign. DP palpable, able to wiggle toes/ankle movement without difficulty. dressing clean dry and intact. improving ankle dorsiflexion Constitutional well developed and well nourished; no acute distress Discharge Data Allergies Allergy/AdvReac Type Severity Reaction Status Date / Time celecoxib Allergy Severe RED FACE, Verified 07/19/22 10:24 TONGUE SWELLING betamethasone Allergy Mild RASH Verified 07/19/22 10:24 clotrimazole Allergy Mild RASH Verified 07/19/22 10:24 corn AdvReac Intermediate STOMACH Verified 07/19/22 10:24 CRAMPING Consultations 07/15/22 15:48 Consult Hospitalist Routine Procedures Performed Operation Date: 07/19/22 11:55 Actual Procedures p Left Total Knee Arthroplasty, Cemented.(Left) - Babak Ma MD Ordered Studies 07/19/22 05:00 US - OR guided needle placemen Routine Hospital Course (1) History of total left knee replacement: POD #1 s/p Left TKA pt/ot dvt proph with ANA/SCD/ASA plan for d/c home with OPPT. will recheck after PT, discussed d/c with hemovac in place to have removed tomorrow in our office, vs staying overnight and doing here in the am PoD2: patient remained stable. pain controlled. Hemovac discoveries prior to discharge. plan on discharge home today. Lab Results 07/19/22 07/19/22 07/20/22 Range/Units 10:42 Unknown 06:44 WBC 16.12 H (4.8-10.8) K/ul RBC 4.22 L (4.63-6.08) M/uL Hgb 12.9 L (14.0-18.0) g/dl Hct 36.5 L (40.1-51.0) % MCV 86.5 (80.0-100.0) fL MCH 30.6 (25.0-34.0) pg MCHC 35.3 (32.0-36.0) g/dL RDW Std Deviation 40.4 (36.4-46.3) fL RDW Coeff of Monster 12.9 (11.5-14.5) % Plt Count 264 (130-400) K/uL MPV 10.3 (9.4-12.4) fL Sodium (136-145) mmol/L Potassium (3.5-5.1) mmol/L Chloride (98-107) mmol/L Carbon Dioxide (21-32) mmol/L Anion Gap (3-11) BUN (6-23) mg/dl Creatinine (0.6-1.4) mg/dl Est Cr Clr Drug Dosing ml/min Est GFR ( Amer) ml/min Est GFR (Non-Af Amer) ml/min BUN/Creatinine Ratio (10-20) Glucose (70-99(Fasting)) mg/dl POC Glucose 100 H (70-99) mg/dl Calcium (8.5-10.1) mg/dl SARS-CoV-2, RNA, NAAT NEGATIVE (NEGATIVE) 07/20/22 Range/Units 06:44 WBC (4.8-10.8) K/ul RBC (4.63-6.08) M/uL Hgb (14.0-18.0) g/dl Hct (40.1-51.0) % MCV (80.0-100.0) fL MCH (25.0-34.0) pg MCHC (32.0-36.0) g/dL RDW Std Deviation (36.4-46.3) fL RDW Coeff of Monster (11.5-14.5) % Plt Count (130-400) K/uL MPV (9.4-12.4) fL Sodium 134 L (136-145) mmol/L Potassium 4.0 (3.5-5.1) mmol/L Chloride 105 (98-107) mmol/L Carbon Dioxide 23 (21-32) mmol/L Anion Gap 6 (3-11) BUN 18 (6-23) mg/dl Creatinine 1.04 (0.6-1.4) mg/dl Est Cr Clr Drug Dosing 70.9 ml/min Est GFR ( Amer) 81.6 ml/min Est GFR (Non-Af Amer) 70.4 ml/min BUN/Creatinine Ratio 17.3 (10-20) Glucose 122 H (70-99(Fasting)) mg/dl POC Glucose (70-99) mg/dl Calcium 8.3 L (8.5-10.1) mg/dl SARS-CoV-2, RNA, NAAT (NEGATIVE) Total Time Total Time Spent Total Time Spent (In Minutes): 20 Discharge Plan Discharge Items Patient Disposition: Home - Self-Care Reason For Visit: DJD Knee Left Discharge Diagnosis: Left knee osteoarthritis Condition on Discharge: Good Activity: Per Instructions section Weightbearing Comment: WBAT with walker Non-emergency contact: Surgeon Call non-emergency contact if: you have any medication questions, your pain is not controlled, your pain is concerning for you, you have a fever, your temperature is above 101, your wound has increased redness and your wound has increased drainage Follow-up/Referrals: Lake Villalobos MD [Primary Care Provider] - 07/29/22 10:15 am (APPT WITH DEE CHAVEZ) Diet: Regular Addtl Attending Provider Instructions: ACTIVITY RECOMMENDATIONS: SELF CARE INSTRUCTIONS AFTER TOTAL KNEE REPLACEMENT A. You may need to continue a physical therapy program after discharge from the hospital. There are several options available to you. Your doctor will assist you in selecting the best one for you. 1. An out-patient facility 2 to 3 times a week for therapy or home therapy. 2. Continue working on all exercises taught to you in the hospital. Your goals should be to increase bending of your knee to 90 degrees and beyond and to fully straighten your knee. B. You may progress at your own pace from walking with a walker or crutches to a cane; then to no assistive devices. C. Make walking a part of your daily routine. Be up as much as comfortable with rest periods throughout the day. Rest with leg elevation is very important. Use the ice wrap frequently for the first 3-4 weeks. D. There are no restrictions on activities. You may ride in a car, shop, participate in waterproof bag sewer and all social activities. E. Wear the long elastic stockings (ANA hose) 20 hours a day for 2 weeks after surgery. They can be removed several times a day for laundering and for a bath. F. You may shower, no tub baths until cleared by your doctor. SPECIAL CARE INSTRUCTIONS: VERY IMPORTANT TO READ AND REVIEW A. There are a few signs you need to watch for after you are home. Call [facility] [place] if you notice any of the followin. Increased severe knee pain. Some pain is expected especially when you exercise. 2. Increased swelling in your leg or knee; pain or swelling of the calf muscle in either lower leg. 3. Any fluid drainage from the incision. 4. Shortness of breath or chest pain. B. Please call [facility] at if you have any concerns or questions about your operation or recovery. The doctor or his nurse will return your call promptly. C. You must take antibiotics before dental work, bladder, bowel or other surgery. Your doctor will provide you with a permanent care to carry describing this precaution. IMPORTANT: * REMEMBER TO TAKE ASPIRIN, 81 MG, TWICE DAILY FOR 4 WEEKS UNLESS OTHERWISE DIRECTED. THIS IS YOUR BLOOD THINNER. * HIGH RISK PATIENTS MAY BE PRESCRIBED A STRONGER BLOOD THINNER. THIS WILL BE PROVIDED AT DISCHARGE. * CALL IF INCREASED PAIN, REDNESS, DRAINAGE OR FEVER GREATER THAT 101. * WEAR ANA HOSE 20 HOURS PER DAY FOR 2 WEEKS. This is a large suction dressing covering your incision. This will help pull any excess drainage from the wound and allow your incision to heal properly. You may shower with this if you can keep the unit outside of the shower. If any bleeding or leakage is noted please call your doctor's office. This will remain on your incision for 7 days and then should be removed. This can be done yourself or by the home nursing staff if applicable. The entire unit is disposable once removed. Once removed, keep incision clean and dry. If redness or drainage is noted, please call your surgeon. IF INCISION IS LEAKING THROUGH DRESSING, CALL THE OFFICE . FOLLOW UP VISIT: If appointment is not already scheduled: Please call [facility] [place] to make a follow-up appointment for 2 weeks after your surgery at . Pending Studies at Discharge: No Stand-Alone Forms: [facility], Pain - Opioid Pain Management, Smoking Cessation Medications and DC Order Prescriptions: New acetaminophen [Tylenol Extra Strength] 500 mg Tablet 1,000 mg PO Q8 21 Days Qty: 126 0RF aspirin [Ecotrin] 325 mg Tablet,Delayed Release (Dr/Ec) 325 mg PO BID 30 Days Qty: 60 0RF oxycodone 5 mg Tablet 5 - 10 mg PO Q6H PRN (Reason: pain) Qty: 30 0RF docusate sodium 100 mg Capsule 100 mg PO BID 10 Days Qty: 20 0RF cefadroxil 500 mg capsule 500 mg PO BID 14 Days Qty: 28 0RF Continued lisinopril 30 mg tablet 30 mg PO QAM Qty: 90 3RF calcium carbonate [Antacid (calcium carbonate)] 200 mg calcium (500 mg) tablet ,chewable 200 mg PO HS PRN (Reason: Acid Reflux) Adult Probiotic 3 billion cell capsule 3,000 mmu cells PO QAM Rx Instructions: administer with a meal loratadine [Claritin] 10 mg tablet 10 mg PO DAILY PRN (Reason: Allergy Symptoms) (DME) Auto Titrating CPAP Misc See Rx Instructions .Route Qty: 1 0RF Rx Instructions: As directed diphenhydramine HCl [Benadryl] 25 mg Capsule 25 mg PO HS PRN (Reason: Insomnia) amoxicillin 500 mg capsule 2,000 mg PO UD PRN (Reason: prior to dental procedures) Rx Instructions: take 4 capsules 1 hour prior to dental procedure simvastatin 20 mg tablet 20 mg PO HS Rx Instructions: took 10mg 07/18/2022 - to be increased to 20mg post op Discontinued aspirin 325 mg tablet 325 mg PO TID acetaminophen [Acetaminophen Extra Strength] 500 mg tablet 1,000 mg PO Q8H PRN (Reason: Pain) turmeric 400 mg capsule 750 mg PO BID Label Comments: usually only once a day Discharge Orders: Discharge Order (Routine); Ordered 07/21/22 Ordered By: Narendra Trotter/Other Patient Handouts: DVT Post Op Prevention Admission Data Admit Date/Time: 07/19/22 15:37 Attending Provider: Bbaak Ma Admit Provider: Babak Ma Primary Care Provider: Lake Villalobos Other Providers: Eric Silva Jonathan M. Other Interventions: Discharge Summary Assessment (RN) Last Done: 07/21/22 11:02
== END 2022-07-21 13:49 | disposition home or self-care (01) ==
LOC: ASU 09:57 → 3W 09:57